=== PATIENT | female | born 2000 | race Caucasian/White ===

== ENCOUNTER 2021-11-01 12:47 | Day surgery (SDC) | payer OTHER ==
[2021-11-01] MEDS ORDERED: fentaNYL 250 MCG/5 ML SDV ONE (12:52)
[2021-11-01] MEDS ORDERED: Midazolam 1 MG/ML 2 ML SDV ONE (12:52)
[2021-11-01] MEDS ORDERED: Propofol 200 MG/20 ML SDV ONE ×2 (12:52→13:46)
[2021-11-01] MEDS ORDERED: Ondansetron 4 MG/2 ML SDV ONE (12:53)
[2021-11-01] MEDS ORDERED: Lidocaine 1% 5 ML VIAL ONE (12:53)
[2021-11-01] MEDS ORDERED: Dexamethasone 4 MG/ML 5 ML MDV ONE (12:53)
[2021-11-01] MEDS ORDERED: Ketorolac 30 MG/ML SDV ONE (12:53)
[2021-11-01] MEDS ORDERED: diphenhydrAMINE 50 MG/ML SDV ONE (12:53)
[2021-11-01] MEDS ORDERED: Lactated Ringers 1,000 ML ONE ×2 (12:58→15:19)
[2021-11-01] MEDS ORDERED: Sodium Chloride 0.9% 1,000 ML ONE (12:58)
[2021-11-01] MEDS ORDERED: Oxytocin 10 Units/1 ML SDV ONE ×2 (12:59→14:56)
[2021-11-01] MEDS ORDERED: Sodium Chloride 0.9% 100 ML ONE (14:43)
[2021-11-01] MEDS ORDERED: Methylergonovine 0.2 MG/1 ML Amp ONE (14:59)
[2021-11-01] MEDS ORDERED: HYDROmorphone 0.5 MG/0.5 ML Syringe IVPUSH PRN (15:29)
[2021-11-01] MEDS ORDERED: fentaNYL 100 MCG/2 ML SDV IVPUSH PRN (15:29)
[2021-11-01] MEDS ORDERED: Ondansetron 4 MG/2 ML SDV IVPUSH PRN (15:29)
== END 2021-11-01 16:40 | disposition home or self-care (01) ==
LOC: JD.ED 12:47 → JD.SDS 13:24
PROVIDERS: ATTEND Obstetrics & Gynecology
DX: O01.0 Classical hydatidiform mole (principal); F41.9 Anxiety disorder, unspecified; F32.A Depression, unspecified; Z87.891 Personal history of nicotine dependence; Z86.16 Personal history of COVID-19
CPT/HCPCS: 36415; 59812; 80053; 85025; 85027; 86850; 86900; 86901; 86922; J1100; J1200; J1885; J2210; J2250; J2405; J2590; J2704; J3010; J7030; J7120; 00940; 99140